=== PATIENT | male | born 1990 | race Caucasian/White ===

== ENCOUNTER 2020-07-31 18:51 | Emergency (ER) | payer BC ==
[~2020-07-31] VITALS: Ht 188 cm; Wt 121.1 kg
[2020-07-31 19:15] VITALS: Ht 188 cm; Wt 121.1 kg
[2020-07-31 21:51] VITALS: BP 143/77
== END 2020-07-31 21:51 | disposition home or self-care (01) ==
LOC: ED 18:51
DX: S93.602A Unspecified sprain of left foot, initial encounter (principal); W18.49XA Other slipping, tripping and stumbling without falling, initial encounter; Y93.55 Activity, bike riding; Y92.488 Other paved roadways as the place of occurrence of the external cause; Y99.8 Other external cause status